=== PATIENT | male | born 1990 | race Caucasian/White ===

== ENCOUNTER → 2017-04-17 | Outpatient (CLI) | payer BC ==
--- NOTE | 2017-04-17 08:11 | DIAGNOSTIC IMAGING REPORT ---
RIGHT SHOULDER 3 VIEWS HISTORY: RIGHT SHOULDER PAIN COMPARISON: None. FINDINGS: There is no fracture or dislocation. Soft tissues are unremarkable. The right clavicle is intact. IMPRESSION: Unremarkable right shoulder. Electronically signed by: Orlin Avalos M.D. 04/17/2017 8:09 AM Dictated Date/Time: 04/17/2017 8:09 AM
== END | disposition home or self-care (01) ==
LOC: C.RDSM 11:01
PROVIDERS: ATTEND Internal Medicine
DX: M25.511 Pain in right shoulder (principal)

== ENCOUNTER → 2017-05-17 | Outpatient (CLI) | payer OTHER ==
[~2017-05-17] MED LIST: GADAVIST IV PRN
--- NOTE | 2017-05-17 12:15 | DIAGNOSTIC IMAGING REPORT ---
RIGHT SHOULDER MRI with INTRA-ARTICULAR CONTRAST HISTORY: RT SHOULDER PAIN TECHNIQUE: Multiplanar multisequence MRI of the right shoulder was performed following the intra-articular injection of contrast. COMPARISON STUDY: Right shoulder 04/17/2017. FINDINGS: AC joint: Intact Rotator cuff: The teres minor and subscapularis tendons are intact. Mild increased T2 signal both within and surrounding the distal infraspinatus and distal supraspinatus tendons. This is consistent with a mild tendinopathy. No evidence for full-thickness rotator cuff tear. Tiny partial tear at the bursal surface of the distal infraspinatus tendon best seen on sagittal image 5. Labrum: Mild intrasubstance increased T2 signal within the posterior superior labrum suggestive of degeneration. No evidence for labral tear. Biceps tendon: Intact Bones: No fracture or dislocation. Normal marrow signal intensity seen throughout the visualized osseous structures. Cartilage: Intact IMPRESSION: 1. Mild tendinopathy within the supraspinatus and infraspinatus tendons with a tiny partial tear at the bursal surface of the distal infraspinatus tendon. No evidence for full-thickness rotator cuff tear. 2. Mild degeneration within the posterior superior labrum without evidence for a tear. Electronically signed by: Orlin Avalos M.D. 05/17/2017 12:14 PM Dictated Date/Time: 05/17/2017 12:06 PM
--- NOTE | 2017-05-17 12:18 | DIAGNOSTIC IMAGING REPORT ---
FLUOROSCOPIC GUIDED RIGHT SHOULDER ARTHROGRAM FLUOROSCOPY TIME: 4 seconds. A single fluoroscopic spot image HISTORY: Right shoulder pain.. PROCEDURE: After obtaining written informed consent, the patient was placed supine on the fluoroscopy table. A suitable site for needle insertion was marked using fluoroscopic guidance. The right shoulder was prepped and draped in the usual sterile fashion. 1% lidocaine was used for skin, subcutaneous and deep soft tissue anesthesia. Under intermittent fluoroscopic guidance, a 22 gauge 2.5 inch spinal needle was inserted into the right glenohumeral joint.A total of 14 cc of one-to-one mixture of dilute Gadavist and Optiray 300 were injected. The needle was then removed. There were no apparent complications. The patient was transported to for further imaging. IMPRESSION: Fluoroscopic-guided right shoulder arthrogram without immediate complication. Total injected volume was 14 cc. MR portion of the examination will be dictated separately. Electronically signed by: Orlin Avalos M.D. 05/17/2017 12:16 PM Dictated Date/Time: 05/17/2017 12:16 PM
== END | disposition home or self-care (01) ==
LOC: C.MRIBC 10:47
PROVIDERS: ATTEND Internal Medicine
DX: M79.621 Pain in right upper arm (principal); S46.011A Strain of muscle(s) and tendon(s) of the rotator cuff of right shoulder, initial encounter; X58.XXXA Exposure to other specified factors, initial encounter